=== PATIENT | male | born 1945 | race Caucasian/White ===

== ENCOUNTER 2023-09-22 14:56 | Outpatient (RCR) | payer MEDICARE, BC ==
[~2023-09-22 14:56] MED LIST: ALEVE 220MG220 MG PO; ASPIRIN 81M81 MG/TA2 PO; ASPIRIN E.C. 8181 MG PO; GLUCOSAMINE & C1 CA2; HEPARIN SOD5000 U/ML IV; MASON NATURAL1200 MG PO; NATURAL E400 IU PO; NORCO 325 MG-51 TAB PO; PEPCID 20MG TAB20 MG PO; PHARMASSURE ZIN50 MG PO; QUALITY CHOICE1 T22 PO; SELENIUM2; VALTREX1 GM PO; VIAGRA100 M1; VITAMIN C500 MG PO; VITAMIN D31000 I1 PO
== END 2023-10-10 | disposition home or self-care (01) ==
LOC: COL.CR
DX: Z48.812 Encounter for surgical aftercare following surgery on the circulatory system (principal); Z95.1 Presence of aortocoronary bypass graft